=== PATIENT | male | born 1990 | race Caucasian/White ===

== ENCOUNTER 2020-06-06 02:36 | Emergency (ER) | payer SELFPAY ==
[2020-06-06 02:55] VITALS: BP 143/89; PULSE 104; TEMP 98; BMI 29.6
[2020-06-06] MEDS ORDERED: ACETAMINOPHEN 325 MG TABLET (FP) PO ONE (03:44)
[2020-06-06] MEDS ORDERED: SODIUM CHLORIDE 0.9% 500 ML INFUS.BAG IV ONE (03:44)
[2020-06-06] MEDS ORDERED: ACETAMINOPHEN 325 MG TABLET (FP) ONE (05:26)
[2020-06-06 05:27] LABS: POTASSIUM 4.2 mmol/L (3.5-5.1)
[2020-06-06 05:28] LABS: CALCIUM 9.4 mg/dL (8.5-10.1)
[2020-06-06 05:29] LABS: ALBUMIN 4.2 g/dl (3.4-5.0); BLOOD UREA NITROGEN 12.9 mg/dL (7-18)
[2020-06-06 05:32] LABS: CREATININE 0.7 mg/dL (0.55-1.3)
[2020-06-06 05:34] LABS: BILIRUBIN,TOTAL 0.3 mg/dL (0.2-1); TOT PROT 7.9 g/dl (6.4-8.2)
[2020-06-06 06:24] LABS: BASO % 0.6 % (0-2.0); EOS % 0.2 % (0-4.5); LYMPH % 37.3 % (8-40); MCH 30.4 pg (25.7-33.7); MCHC 34.1 g/dl (32.0-35.9); MEAN CELL VOLUME 89.1 fl (80-96); MEAN PLT VOLUME 10.3 fl (7.5-11.1); MONO % 7.5 % (3.8-10.2); NEUT % 54.4 % (42.8-82.8); PLATELET COUNT 239 K/MM3 (134-434); RBC 4.93 M/mm3 (4.00-5.60); RDW 12.5 % (11.9-15.9); WHITE BLOOD COUNT 8.5 K/mm3 (4.0-10.0)
== END 2020-06-06 07:48 | disposition home or self-care (01) ==
LOC: JER 02:36
DX: R51.9 Headache, unspecified (principal); F19.90 Other psychoactive substance use, unspecified, uncomplicated
CPT/HCPCS: 36415; 70450-TC; 80053; 82962; 85025; 99284-25

== ENCOUNTER 2020-09-18 03:15 | Emergency (ER) | payer SELFPAY ==
[2020-09-18 03:42] VITALS: BMI 27.9
[2020-09-18 05:42] VITALS: TEMP 97.7
[2020-09-18 07:23] VITALS: BP 128/66; PULSE 87
== END 2020-09-18 07:37 | disposition home or self-care (01) ==
LOC: JER 03:15
DX: F10.129 Alcohol abuse with intoxication, unspecified (principal)
CPT/HCPCS: 99281-25